=== PATIENT | female | born 1995 ===

== ENCOUNTER 2020-08-13 12:14 | Inpatient (IN) | payer MEDICAID ==
[~2020-08-13] VITALS: Ht 163.8 cm; Wt 120.0 kg
[2020-08-13 20:30] VITALS: BP 125/89
[2020-08-13] MEDS ORDERED: DOCUSATE 100 MG CAPSULE PO PRN (21:30)
[2020-08-13] MEDS ORDERED: TRAZODONE 50MG TABLET PO PRN (21:30)
[2020-08-13] MEDS ORDERED: ONDANSETRON ODT 4 MG PO PRN (21:30)
[2020-08-13] MEDS ORDERED: BISACODYL 10 MG SUPP PR PRN (21:30)
[2020-08-13] MEDS ORDERED: PLEASE ENTER HEIGHT AND WEIGHT MC SCH (22:00)
[2020-08-13] MEDS ORDERED: PLEASE ENTER ALLERGIES MC SCH ×2 (22:00)
[2020-08-13] MEDS: TRAZODONE 50MG TABLET PO PRN (22:33)
[2020-08-14] MEDS ORDERED: Trintellix PO (01:26)
[2020-08-14] MEDS ORDERED: OXCA150T3 PO (01:29)
[2020-08-14] MEDS ORDERED: TRAZ50TA66 PO (01:31)
[2020-08-14 08:09] VITALS: BP 112/74
[2020-08-14 08:31] LABS: CHOL/HDL RATIO 4.2; LDL/HDL RATIO 2.7 (0.5-3.0)
[2020-08-14] MEDS: NICOTINE 21 MG/24 HR PATCH.TD24 TD SCH (09:17)
[2020-08-14] MEDS: ACETAMINOPHEN 325 MG TABLET PO PRN (10:49)
[2020-08-14] MEDS ORDERED: HYDROXYZINE PAMOATE 50MG CAP PO PRN (14:00)
[2020-08-14 19:45] VITALS: BP 134/84
[2020-08-14] MEDS: OXCARBAZEPINE 150 MG TABLET PO SCH (20:53)
[2020-08-14] MEDS: LORazepam 1MG TABLET PO PRN (20:53)
[2020-08-14] MEDS: POLYETHYLENE GLYCOL 17 GM PACKET PO PRN (20:53)
[2020-08-15 07:45] VITALS: BP 102/68
[2020-08-15] MEDS: OXCARBAZEPINE 150 MG TABLET PO SCH ×2 (09:04→20:49)
[2020-08-15] MEDS: LORazepam 1MG TABLET PO PRN ×2 (09:04→18:07)
[2020-08-15] MEDS: NICOTINE 21 MG/24 HR PATCH.TD24 TD SCH (09:06)
[2020-08-15] MEDS ORDERED: HALOPERIDOL 5 MG/ML ONE (10:20)
[2020-08-15] MEDS ORDERED: LORazepam 2 MG/ML, 1ML ONE (10:20)
[2020-08-15] MEDS ORDERED: LORazepam 2 MG/ML, 1ML IM ONE (10:30)
[2020-08-15] MEDS ORDERED: HALOPERIDOL 5 MG/ML IM ONE (10:30)
[2020-08-15] MEDS: ACETAMINOPHEN 325 MG TABLET PO PRN (18:07)
[2020-08-15 19:55] VITALS: BP 108/70
[2020-08-15] MEDS: TRAZODONE 50MG TABLET PO PRN (20:49)
[2020-08-16 07:35] VITALS: BP 114/82
[2020-08-16] MEDS: OXCARBAZEPINE 150 MG TABLET PO SCH (09:02)
[2020-08-16] MEDS: ACETAMINOPHEN 325 MG TABLET PO PRN (09:02)
[2020-08-16] MEDS: POLYETHYLENE GLYCOL 17 GM PACKET PO PRN (09:02)
[2020-08-16] MEDS: NICOTINE 21 MG/24 HR PATCH.TD24 TD SCH (09:03)
[2020-08-16] MEDS: LORazepam 1MG TABLET PO PRN ×2 (13:54→21:47)
[2020-08-16 13:56] LABS: HCG UR SG 1.018 (1.003-1.030)
[2020-08-16 13:59] LABS: MICROSCOPIC INDICATED
[2020-08-16] MEDS ORDERED: VILA20TA PO (15:51)
[2020-08-16 18:40] VITALS: BP 107/69
[2020-08-16] MEDS: OXCARBAZEPINE 300MG TABLET PO SCH (21:42)
[2020-08-16] MEDS: CIPROFLOXACIN 250 MG TABLET PO SCH (21:43)
[2020-08-17 07:26] VITALS: BP 94/61
[2020-08-17] MEDS: NICOTINE 21 MG/24 HR PATCH.TD24 TD SCH (08:40)
[2020-08-17] MEDS: CIPROFLOXACIN 250 MG TABLET PO SCH ×2 (08:41→20:16)
[2020-08-17] MEDS: VIIBRYD 10 MG PO SCH (08:41)
[2020-08-17] MEDS: OXCARBAZEPINE 150 MG TABLET PO SCH (08:41)
[2020-08-17] MEDS ORDERED: TRINTELLIX 20 MG PO SCH (09:00)
[2020-08-17] MEDS ORDERED: TRINTELLIX 10 MG PO SCH (09:00)
[2020-08-17] MEDS: LORazepam 1MG TABLET PO PRN ×2 (15:16→20:16)
[2020-08-17 19:40] VITALS: BP 118/78
[2020-08-17] MEDS: OXCARBAZEPINE 300MG TABLET PO SCH (20:17)
[2020-08-18 08:00] VITALS: BP 119/83
[2020-08-18] MEDS: VIIBRYD 10 MG PO SCH (09:00)
[2020-08-18] MEDS: CIPROFLOXACIN 250 MG TABLET PO SCH (09:37)
[2020-08-18] MEDS: NICOTINE 21 MG/24 HR PATCH.TD24 TD SCH (09:37)
[2020-08-18] MEDS: OXCARBAZEPINE 150 MG TABLET PO SCH (09:37)
[2020-08-18] MEDS ORDERED: VIIBRYD 10 MG PO SCH (10:30)
[2020-08-18] MEDS ORDERED: VIIBRYD 10 MG HOMEMEDPO SCH (10:30)
[2020-08-18] MEDS ORDERED: VILA20TA PO (14:45)
[2020-08-18] MEDS ORDERED: OXCA150T18 PO (14:45)
[2020-08-18] MEDS ORDERED: NICO-587 TD (14:45)
[2020-08-18] MEDS ORDERED: HYDR50CA2 PO (14:45)
[2020-08-18] MEDS ORDERED: OXCA300T19 PO (14:45)
== END 2020-08-18 15:00 | disposition home or self-care (01) | DRG 751 ==
LOC: 3E 15:40 → UNDOADMIN 15:40 → 3E 20:35
PROVIDERS: ADMIT Psychiatry & Neurology Psychosomatic Medicine; ATTEND Psychiatry & Neurology Psychosomatic Medicine
DX: F32.2 Major depressive disorder, single episode, severe without psychotic features (principal); R45.851 Suicidal ideations; Z68.41 Body mass index [BMI] 40.0-44.9, adult; G40.909 Epilepsy, unspecified, not intractable, without status epilepticus; E66.9 Obesity, unspecified; F43.10 Post-traumatic stress disorder, unspecified; F60.3 Borderline personality disorder; F63.9 Impulse disorder, unspecified; R51.9 Headache, unspecified; J45.909 Unspecified asthma, uncomplicated; I10 Essential (primary) hypertension; F11.11 Opioid abuse, in remission; F15.21 Other stimulant dependence, in remission; F17.210 Nicotine dependence, cigarettes, uncomplicated; Z88.8 Allergy status to other drugs, medicaments and biological substances
CPT/HCPCS: 36415; 71045; 80061; 81001; 81025; 87086; 93005; J1630; J2060